=== PATIENT | female | born 1975 | race Two or more races ===

== ENCOUNTER 2019-01-05 05:00 | Day surgery (SDC) | payer OTHER ==
[~2019-01-05 05:00] MED LIST: TRUSOPT10 ML OPHT; [UNRECOGNIZED DRUG - OTHER]
== END 2019-01-05 10:40 | disposition home or self-care (01) ==
LOC: CIR.AMB 05:00
DX: D17.21 Benign lipomatous neoplasm of skin and subcutaneous tissue of right arm (principal)

== ENCOUNTER 2019-02-15 10:20 | Outpatient (CLI) | payer OTHER | END 2019-02-15 10:30 | disposition home or self-care (01) | LOC: MAMO-SONO 10:20 | DX: Z12.31 Encounter for screening mammogram for malignant neoplasm of breast (principal); Z87.898 Personal history of other specified conditions; L72.0 Epidermal cyst ==

== ENCOUNTER 2019-04-24 14:50 | Outpatient (CLI) | payer OTHER | END 2019-04-24 14:57 | disposition home or self-care (01) | LOC: LAB 14:50 | DX: L02.33 Carbuncle of buttock (principal) ==

== ENCOUNTER 2019-05-12 11:15 | Outpatient (CLI) | payer OTHER | END 2019-05-12 11:21 | disposition home or self-care (01) | LOC: LAB 11:15 | DX: Z22.322 Carrier or suspected carrier of Methicillin resistant Staphylococcus aureus (principal) ==

== ENCOUNTER 2019-05-24 05:00 | Day surgery (SDC) | payer OTHER ==
[~2019-05-24 05:00] MED LIST changes: +BRIMONIDINE TART5 M1 OPHT; +DORZOLAMIDE HCL10 ML OP; +LUMIGAN2.5 M1 OP
[2019-05-24] MEDS ORDERED: PERCOCET 5-3251 EACH PO (09:19)
[2019-05-24] MEDS ORDERED: NEURONTIN300 MG PO (09:21)
== END 2019-05-24 16:25 | disposition home or self-care (01) ==
LOC: CIR.AMB 05:00
DX: K60.3 Anal fistula (principal)

== ENCOUNTER 2019-09-18 06:00 | Day surgery (SDC) | payer OTHER ==
[~2019-09-18 06:00] MED LIST changes: +AUG PO; +JUVEN PO; +NEURONTIN300 MG PO; +PERCOCET 5-3251 EACH PO; +TIMOLOL; +VITAMIN PO
== END 2019-09-18 14:37 | disposition home or self-care (01) ==
LOC: CIR.AMB 06:00
DX: K60.3 Anal fistula (principal)

== ENCOUNTER 2020-02-14 05:53 | Day surgery (SDC) | payer OTHER ==
[2020-02-14] MEDS ORDERED: PERCOCET 5-3251 EACH PO (09:56)
[2020-02-14] MEDS ORDERED: KETO10TA2 PO (09:57)
== END 2020-02-14 14:20 | disposition home or self-care (01) ==
LOC: CIR.AMB 05:53
PROVIDERS: ATTEND Surgery
DX: K60.3 Anal fistula (principal); Z20.828 Contact with and (suspected) exposure to other viral communicable diseases

== ENCOUNTER 2020-06-05 05:25 | Day surgery (SDC) | payer OTHER ==
[~2020-06-05 05:25] MED LIST changes: +KETO10TA2 PO
== END 2020-06-05 13:40 | disposition home or self-care (01) ==
LOC: CIR.AMB 05:25
PROVIDERS: ATTEND Surgery
DX: K60.3 Anal fistula (principal); Z20.822 Contact with and (suspected) exposure to COVID-19